=== PATIENT | female | born 1990 | race Caucasian/White ===

== ENCOUNTER 2018-10-16 09:58 | Emergency (ER) | payer MEDICAID, OTHER ==
[2018-10-16] MEDS ORDERED: ONDANSETRON 4 MG/2 ML VIAL IVP ONE (10:32)
[2018-10-16] MEDS ORDERED: LORazepam 2 MG/ML INJ IVP ONE (10:32)
[2018-10-16] MEDS ORDERED: NS 1,000 ML IV ONE (10:32)
[2018-10-16 10:42] LABS: PLATELET COUNT 391 10^3/uL (150-400)
--- NOTE | 2018-10-16 11:12 | EDPHY ---
H & P Stated Complaint: Panix attack, threw up this am. Concerned about detox. Time Seen by Provider: 10/16/18 10:17 HPI/ROS: CHIEF COMPLAINT: Alcohol dependence, vomiting, anxiety HISTORY OF PRESENT ILLNESS: The patient presents to the ED after she developed acute anxiety and vomited. The patient states that her symptoms are secondary to her chronic alcohol use which she is now quite concerned about. She reports she drinks several times a day. She typically starts drinking in the morning. She has not had a seizure. The patient had nonbloody vomiting today. She denies melena. The patient feels that she is significantly motivated to stop drinking alcohol. She denies any suicidal ideation. The patient would like outpatient resources and some stabilization of her symptoms of anxiety and vomiting. REVIEW OF SYSTEMS: A comprehensive 10 point review of systems is otherwise negative aside from elements mentioned in the history of present illness. Source: Patient Exam Limitations: No limitations - Personal History LMP (Females 10-55): Now Current Tetanus Diphtheria and Acellular Pertussis (TDAP): Yes Tetanus Vaccine Date: NOVEMBER 2010 - Medical/Surgical History Hx Asthma: No Hx Chronic Respiratory Disease: No Hx Diabetes: No Hx Cardiac Disease: No Hx Renal Disease: No Hx Cirrhosis: No Hx Alcoholism: Yes Hx HIV/AIDS: No Hx Splenectomy or Spleen Trauma: No Other PMH: pelvic pain. chronic complicated migraines with neuro deficits. pcos. ETOH.Panic attack, nausea - Social History Smoking Status: Current every day smoker - Physical Exam Exam: General Appearance: Alert, tearful, no acute distress Eyes: Pupils equal and round no pallor or injection ENT, Mouth: Mucous membranes moist Respiratory: There are no retractions, lungs are clear to auscultation Cardiovascular: Regular rate and rhythm Gastrointestinal: Abdomen is soft and nontender, no masses, bowel sounds normal Neurological: Intact intention, 5/5 strength all 4 extremities Skin: Warm and dry, no rashes Musculoskeletal: Neck is supple nontender Extremities: symmetrical, full range of motion Psychiatric: Patient is oriented X 3, there is no agitation, denies suicidal ideation Constitutional: Initial Vital Signs Temperature (C) 36.6 C 10/16/18 09:59 Heart Rate 110 H 10/16/18 09:59 Respiratory Rate 20 10/16/18 09:59 Blood Pressure 155/110 H 10/16/18 09:59 O2 Sat (%) 100 10/16/18 09:59 O2 Delivery Mode Room Air Allergies/Adverse Reactions: Penicillins Allergy (Severe, Verified 04/04/16 08:46) Sulfa (Sulfonamide Antibiotics) Allergy (Severe, Verified 04/04/16 08:46) lactase [From Dairy Aid] Allergy (Verified 04/04/16 08:46) Home Medications: Medication Instructions Recorded Depo-Provera 04/04/16 Cefdinir 10/16/18 Folic Acid 10/16/18 Gabapentin 10/16/18 Medical Decision Making ED Course/Re-evaluation: The patient presents the emergency department with issues surrounding chronic alcohol abuse. She is not in significant alcohol withdrawal. She is quite anxious. She had vomited earlier today. Her abdominal examination is benign. She received IV Zofran and and 1 mg of Ativan. Screening laboratory studies demonstrate no evidence of a critical anemia, metabolic derangement or significant hepatitis or pancreatitis. Patient is very interested in outpatient programs. I spoke with the special education case manager at the [facility], Carlitos Saxena, who stated the patient will be an ideal candidate to consider Vivitrol. She is interested in this. She will be discharged to the [facility] now to talk to the special education case manager about this as an option. Differential Diagnosis: Differential diagnosis considered includes anxiety, vomiting, alcohol dependence - Data Points Laboratory Results: Laboratory Results 10/16/18 10:15 10/16/18 10:15 10/16/18 10/16/18 10:15 10:15 WBC 13.22 10^3/uL H 10^3/uL (3.80-9.50) RBC 5.00 10^6/uL 10^6/uL (4.18-5.33) Hgb 16.2 g/dL g/dL (12.6-16.3) Hct 47.4 % H % (38.0-47.0) MCV 94.8 fL fL (81.5-99.8) MCH 32.4 pg pg (27.9-34.1) MCHC 34.2 g/dL g/dL (32.4-36.7) RDW 12.7 % % (11.5-15.2) Plt Count 391 10^3/uL 10^3/uL (150-400) MPV 9.4 fL fL (8.7-11.7) Neut % (Auto) 83.4 % H % (39.3-74.2) Lymph % (Auto) 8.5 % L % (15.0-45.0) [place] % (Auto) 6.4 % % (4.5-13.0) Eos % (Auto) 1.1 % % (0.6-7.6) Baso % (Auto) 0.3 % % (0.3-1.7) Nucleat RBC Rel Count 0.0 % % (0.0-0.2) Absolute Neuts (auto) 11.02 10^3/uL H 10^3/uL (1.70-6.50) Absolute Lymphs (auto) 1.12 10^3/uL 10^3/uL (1.00-3.00) Absolute Monos (auto) 0.85 10^3/uL H 10^3/uL (0.30-0.80) Absolute Eos (auto) 0.15 10^3/uL 10^3/uL (0.03-0.40) Absolute Basos (auto) 0.04 10^3/uL 10^3/uL (0.02-0.10) Absolute Nucleated RBC 0.00 10^3/uL 10^3/uL (0-0.01) Immature Gran % 0.3 % % (0.0-1.1) Immature Gran # 0.04 10^3/uL 10^3/uL (0.00-0.10) Sodium 140 mEq/L mEq/L (135-145) Potassium 4.0 mEq/L mEq/L (3.5-5.2) Chloride 102 mEq/L mEq/L (97-110) Carbon Dioxide 24 mEq/l mEq/l (22-31) Anion Gap 14 mEq/L mEq/L (6-14) BUN 11 mg/dL mg/dL (7-23) Creatinine 0.7 mg/dL mg/dL (0.6-1.0) Estimated GFR > 60 Glucose 98 mg/dL mg/dL (70-100) Calcium 9.7 mg/dL mg/dL (8.5-10.4) Total Bilirubin 1.0 mg/dL mg/dL (0.1-1.4) Conjugated Bilirubin 0.4 mg/dL mg/dL (0.0-0.5) Unconjugated Bilirubin 0.6 mg/dL mg/dL (0.0-1.1) AST 36 IU/L IU/L (14-46) ALT 33 IU/L IU/L (9-52) Alkaline Phosphatase 89 IU/L IU/L (38-126) Total Protein 8.5 g/dL H g/dL (6.3-8.2) Albumin Pending Lipase 171 IU/L IU/L (23-300) Medications Given: Discontinued Medications Sodium Chloride (Ns) 1,000 mls @ 0 mls/hr IV EDNOW ONE; Wide Open PRN Reason: Protocol Stop: 10/16/18 10:33 Last Admin: 10/16/18 10:36 Dose: 1,000 mls Lorazepam (Ativan Injection) 1 mg IVP EDNOW ONE Stop: 10/16/18 10:33 Last Admin: 10/16/18 10:36 Dose: 1 mg Ondansetron HCl (Zofran) 4 mg IVP EDNOW ONE Stop: 10/16/18 10:33 Last Admin: 10/16/18 10:36 Dose: 4 mg Departure - Departure Disposition: Home, Routine, Self-Care Clinical Impression: Alcohol dependence, Vomiting Condition: Good Instructions: Alcohol Dependence (ED) Additional Instructions: 1. Please go directly to the [facility] in asked to speak to the special education case manager Carlitos Saxena. He can also be reached at or . I spoke with him and he is expecting to speak with you today. He is at the [facility] until 3:00 a.m. this afternoon. Referrals: [facility] [Outside] - As per Instructions
[2018-10-16 12:01] VITALS: BP 127/93
== END 2018-10-16 12:01 | disposition home or self-care (01) ==
DX: F41.9 Anxiety disorder, unspecified (principal); R11.10 Vomiting, unspecified; F10.129 Alcohol abuse with intoxication, unspecified; E86.9 Volume depletion, unspecified
CPT/HCPCS: 96374; J2060; J2405

== ENCOUNTER 2018-11-25 13:02 | Emergency (ER) | payer MEDICAID ==
[2018-11-25] MEDS ORDERED: METOCLOPRAMIDE 10 MG/2 ML VIAL IVP ONE (13:23)
[2018-11-25] MEDS ORDERED: DEXAMETHASONE 10 MG/ML VIAL IVP ONE (13:23)
[2018-11-25] MEDS ORDERED: KETOROLAC 30 MG/1 ML SDV IVP ONE (13:28)
[2018-11-25] MEDS ORDERED: NS 1,000 ML IV ONE (13:28)
[2018-11-25] MEDS ORDERED: LORazepam 2 MG/ML INJ IVP ONE (13:29)
--- NOTE | 2018-11-25 13:30 | EDPHY ---
H & P Stated Complaint: migraine WAITE, vision changes, complex migraine hx Time Seen by Provider: 11/25/18 13:23 HPI/ROS: CHIEF COMPLAINT: Migraine headache HISTORY OF PRESENT ILLNESS: The patient is a 27-year-old female with a history of complex migraines as well as alcoholism. She is currently in rehab and is taking Vivitrol. She has not had a drink in the last 4 days. She denies withdrawal symptoms. This morning she developed a headache that is primarily frontal that is consistent with her previous migraines. No thunderclap in onset. No trauma. No fever. No neck pain or stiffness. No recent illness. She states that she has had blurry vision accompanied with some halting speech and some trouble understanding what people are saying to her. She states that the symptoms have improved over last couple of hours. Her headache began around 9:00 a.m. This morning. No focal weakness or deficits. Severity: Severe Modifying factors: None REVIEW OF SYSTEMS: Constitutional: denies: chills, fever, recent illness, recent injury EENTM: denies: blurred vision, double vision, nose congestion Respiratory: denies: cough, shortness of breath Cardiac: denies: chest pain, irregular heart rate, lightheadedness, palpitations Gastrointestinal/Abdominal: denies: abdominal pain, diarrhea, nausea, vomiting, blood streaked stools Genitourinary: denies: dysuria, frequency, hematuria, pain Musculoskeletal: denies: joint pain, muscle pain Skin: denies: lesions, rash, jaundice, bruising Neurological: See HPI Hematologic/Lymphatic: denies: blood clots, easy bleeding, easy bruising Immunologic/allergic: denies: HIV/AIDS, transplant 10 systems reviewed and negative except as noted EXAM: GENERAL: Moderate distress HEAD: Atraumatic, normocephalic. EYES: Pupils equal round and reactive to light, extraocular movements intact, sclera anicteric, conjunctiva are normal. ENT: TMs normal, nares patent, oropharynx clear without exudates. Moist mucous membranes. NECK: Normal range of motion, supple without lymphadenopathy or JVD. LUNGS: Breath sounds clear to auscultation bilaterally and equal. No wheezes rales or rhonchi. HEART: Regular rate and rhythm without murmurs, rubs or gallops. ABDOMEN: Soft, nontender, normoactive bowel sounds. No guarding, no rebound. No masses appreciated. BACK: No CVA tenderness, no spinal tenderness, step-offs or deformities EXTREMITIES: Normal range of motion, no pitting or edema. No clubbing or cyanosis. NEUROLOGICAL: Cranial nerves II through XII grossly intact. Normal speech, normal gait. 5/5 strength, normal movement in all extremities, normal sensation , normal reflexes PSYCH: Normal mood, normal affect. SKIN: Warm, dry, normal turgor, no visible rashes or lesions. Source: Patient Exam Limitations: No limitations - Personal History LMP (Females 10-55): Irregular Tetanus Vaccine Date: NOVEMBER 2010 - Medical/Surgical History Hx Asthma: No Hx Chronic Respiratory Disease: No Hx Diabetes: No Hx Cardiac Disease: No Hx Renal Disease: No Hx Cirrhosis: No Hx Alcoholism: Yes Hx HIV/AIDS: No Hx Splenectomy or Spleen Trauma: No Other PMH: enometriosis. chronic complicated migraines with neuro deficits. pcos. ETOH.Panic attack, nausea - Social History Smoking Status: Current every day smoker Alcohol Use: Heavy Constitutional: Initial Vital Signs Temperature (C) 36.8 C 11/25/18 13:04 Heart Rate 76 11/25/18 13:04 Respiratory Rate 16 11/25/18 13:04 Blood Pressure 131/80 H 11/25/18 13:04 O2 Sat (%) 96 11/25/18 13:04 O2 Delivery Mode Room Air Allergies/Adverse Reactions: Penicillins Allergy (Severe, Verified 04/04/16 08:46) Sulfa (Sulfonamide Antibiotics) Allergy (Severe, Verified 04/04/16 08:46) lactase [From Dairy Aid] Allergy (Verified 04/04/16 08:46) Home Medications: Medication Instructions Recorded Depo-Provera 04/04/16 Folic Acid 10/16/18 Gabapentin 10/16/18 Metoclopramide [Reglan 10 mg tab 10 mg PO BID PRN #10 tab 11/25/18 (RX)] Zoloft 25mg (*) 11/25/18 Medical Decision Making ED Course/Re-evaluation: 2:20 p.m. patient is sleeping. She is feeling better. Will continue to observe. Lab work reassuring. 3:30 p.m. Sleeping comfortably. Feeling better. Will continue to observe. 4:10 p.m. patient is feeling much better. Her headache is resolved. She is asking to go home. She is asking for prescription for Reglan. Her will drive her. Differential Diagnosis: Partial list of the Differential diagnosis considered include but were not limited to; migraine headache, tension headache and although unlikely based on the history and physical exam, I also considered CVA, seizure, infection, trauma. I discussed these differential diagnoses and the plan with the patient as well as the usual and expected course. The patient understands that the diagnosis is provisional and that in medicine we are not always correct and that further workup is often warranted. Usual and customary warnings were given. All of the patient's questions were answered. The patient was instructed to return to the emergency department should the symptoms at all worsen or return, otherwise to followup with the physician as we discussed. - Data Points Laboratory Results: Laboratory Results 11/25/18 13:29 11/25/18 13:29 11/25/18 11/25/18 11/25/18 13: 13: 13:29 WBC 11.12 10^3/uL H 10^3/uL (3.80-9.50) RBC 4.38 10^6/uL 10^6/uL (4.18-5.33) Hgb 13.6 g/dL g/dL (12.6-16.3) Hct 39.9 % % (38.0-47.0) MCV 91.1 fL fL (81.5-99.8) MCH 31.1 pg pg (27.9-34.1) MCHC 34.1 g/dL g/dL (32.4-36.7) RDW 11.7 % % (11.5-15.2) Plt Count 319 10^3/uL 10^3/uL (150-400) MPV 9.4 fL fL (8.7-11.7) Neut % (Auto) 74.4 % H % (39.3-74.2) Lymph % (Auto) 17.6 % % (15.0-45.0) [place] % (Auto) 3.7 % L % (4.5-13.0) Eos % (Auto) 3.5 % % (0.6-7.6) Baso % (Auto) 0.4 % % (0.3-1.7) Nucleat RBC Rel Count 0.0 % % (0.0-0.2) Absolute Neuts (auto) 8.27 10^3/uL H 10^3/uL (1.70-6.50) Absolute Lymphs (auto) 1.96 10^3/uL 10^3/uL (1.00-3.00) Absolute Monos (auto) 0.41 10^3/uL 10^3/uL (0.30-0.80) Absolute Eos (auto) 0.39 10^3/uL 10^3/uL (0.03-0.40) Absolute Basos (auto) 0.05 10^3/uL 10^3/uL (0.02-0.10) Absolute Nucleated RBC 0.00 10^3/uL 10^3/uL (0-0.01) Immature Gran % 0.4 % % (0.0-1.1) Immature Gran # 0.04 10^3/uL 10^3/uL (0.00-0.10) Sodium 134 mEq/L L mEq/L (135-145) Potassium 3.8 mEq/L mEq/L (3.5-5.2) Chloride 100 mEq/L mEq/L (97-110) Carbon Dioxide 25 mEq/l mEq/l (22-31) Anion Gap 9 mEq/L mEq/L (6-14) BUN 8 mg/dL mg/dL (7-23) Creatinine 0.7 mg/dL mg/dL (0.6-1.0) Estimated GFR > 60 Glucose 108 mg/dL H mg/dL (70-100) Calcium 9.5 mg/dL mg/dL (8.5-10.4) Beta HCG, Qual NEGATIVE Medications Given: Discontinued Medications Dexamethasone (Decadron Injection) 10 mg IVP EDNOW ONE Stop: 11/25/18 13:24 Last Admin: 11/25/18 13:45 Dose: 10 mg Diphenhydramine HCl (Benadryl Injection) 25 mg IVP EDNOW ONE Stop: 11/25/18 13:24 Last Admin: 11/25/18 13:44 Dose: 25 mg Sodium Chloride (Ns) 1,000 mls @ 0 mls/hr IV ONCE ONE; Wide Open PRN Reason: Protocol Stop: 11/25/18 13:29 Last Admin: 11/25/18 13:42 Dose: 1,000 mls Ketorolac Tromethamine (Toradol) 15 mg IVP EDNOW ONE Stop: 11/25/18 13:29 Last Admin: 11/25/18 13:43 Dose: 15 mg Lorazepam (Ativan Injection) 1 mg IVP EDNOW ONE Stop: 11/25/18 13:30 Last Admin: 11/25/18 13:45 Dose: 1 mg Metoclopramide HCl (Reglan Injection) 10 mg IVP EDNOW ONE Stop: 11/25/18 13:24 Last Admin: 11/25/18 13:43 Dose: 10 mg Departure - Departure Disposition: Home, Routine, Self-Care Clinical Impression: Migraine Qualifiers: Migraine type: other Status migrainosus presence: without status migrainosus Intractability: not intractable Qualified Code(s): G43.809 - Other migraine, not intractable, without status migrainosus Condition: Fair Instructions: Migraine Headache (ED) Referrals: NONE *PRIMARY CARE P,. [Primary Care Provider] - As per Instructions Jaden Navarrete DO [Medical Doctor] - 5-7 days, call for appt. Prescriptions: Metoclopramide [Reglan 10 mg tab (RX)] 10 mg PO BID PRN #10 tab PRN Reason: Headache
[2018-11-25 13:41] LABS: PLATELET COUNT 319 10^3/uL (150-400)
[2018-11-25 16:11] VITALS: BP 118/82
== END 2018-11-25 16:19 | disposition home or self-care (01) ==
DX: G43.809 Other migraine, not intractable, without status migrainosus (principal); E86.9 Volume depletion, unspecified; F10.20 Alcohol dependence, uncomplicated; Z88.0 Allergy status to penicillin; Z88.2 Allergy status to sulfonamides
CPT/HCPCS: 96374; J1100; J1200; J1885; J2060; J2765